=== PATIENT | female | born 1975 | race Two or more races ===

== ENCOUNTER 2020-02-23 11:52 | Emergency (ER) | payer MEDICAID ==
[~2020-02-23] VITALS: Ht 162.6 cm; Wt 74.8 kg
[~2020-02-23 11:52] MED LIST: ALBUTEROL SULF8.5 GM INH; AUGMENTIN 500-1 EACH ORAL; AZITHROMYCIN250 MG ORAL; BACTRIM-DS1 EA PO; CEPHALEXIN500 MG PO; METRONIDAZOLE500 MG PO; NKM; PROMETHAZINE-C118 M1 ORAL; TYLENOL 8 HOUR650 M1 ORAL; ZITHROMAX250 MG ORAL
[2020-02-23 12:24] VITALS: BP 111/71
--- NOTE | 2020-02-23 12:26 | NUR ---
ED Nurse Note:pt. c/o right knee pain for over one month, no injury reported
[2020-02-23] MEDS ORDERED: IBUPROFEN600 M1 ORAL (13:29)
[2020-02-23 13:34] VITALS: BP 113/73
--- NOTE | 2020-02-23 13:35 | Diagnostic Imaging Report ---
Indication: Pain Technique: 3 views of the right knee Comparison: None Findings: No acute fractures. No dislocations. There are small medial and lateral and patellar osteophytes. The joint spaces are preserved. There is equivocally a minimal amount of suprapatellar effusion. Impression: No acute process This agrees with the preliminary interpretation provided by the emergency room physician
--- NOTE | 2020-02-23 13:36 | NUR ---
ED Nurse Note:basil wrap placed on right knee Pt cleared by health care Provider for discharge. DC instructions/prescription was given and explained to pt and verbalized understanding of teachings. All medical deviecs such as ID band removed. Pt is AAO x4, ambulatory and left with all personal belongings.
--- NOTE | 2020-02-23 14:01 | Emergency Room Report ---
History of Present Illness General Chief Complaint: Pain Source: Patient Present Illness HPI Patient presents emergency department today complaint right knee pain. Patient states that she turned her knee a few days ago and since then has been hurting she feels like it clicks. States is swollen. She denies any trauma. No other complaints are noted. Symptoms noted to moderate. Denies any fever nausea vomiting diarrhea chills. No other complaints never had episodes of this before. No other modifying factors. No other associated signs and symptoms. No other complaints were noted. 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 Patient History Past Medical History: none Past Surgical History: none Pertinent Family History: none Social History: Denies: smoking, alcohol use, drug use Last Menstrual Period: unknown Reviewed Nursing Documentation: PMH: Agreed; PSxH: Agreed Nursing Documentation-PMH Past Medical History: No Stated History Hx Neurological Problems: Yes - Migraines Hx Seizures: Yes Review of Systems All Other Systems: negative except mentioned in HPI Physical Exam Vital Signs Date Time Temp Pulse Resp B/P (MAP) Pulse Ox O2 Delivery O2 Flow Rate FiO2 02/23/20 12:12 98.4 70 14 111/71 (84) 98 Room Air Sp02 EP Interpretation: reviewed, normal General Appearance: normal inspection, well appearing, no apparent distress, alert Head: atraumatic Eyes: bilateral eye normal inspection ENT: normal ENT inspection, hearing grossly normal, normal voice Neck: normal inspection, full range of motion, supple, no bony tend Respiratory: normal inspection, lungs clear, normal breath sounds, no respiratory distress, no retraction, no wheezing Cardiovascular #1: regular rate, rhythm, no edema Gastrointestinal: normal inspection, normal bowel sounds, non tender, soft, no guarding, no hernia Genitourinary: no CVA tenderness Musculoskeletal: tender - Right knee, swelling - Right knee, pain limited range of motion Neurologic: alert, responsive, speech normal, normal inspection Psychiatric: normal inspection, judgement/insight normal, mood/affect normal Skin: no rash Procedures Splinting Splinting : Consent: Verbal Location: Right knee Pre-Made Type: JARETT wrap Pre-Proc Neuro Vasc Exam: normal Post-Proc Neuro Vasc Exam: normal Patient Tolerated: Well Complications: None Medical Decision Making Diagnostic Impression: Primary Impression: Strain of knee and leg, right ER Course Patient presents emergency department today complaint right knee pain. Differential considerations include arthritis, septic joint, meniscus tear, ACL tear. Patient swelling of her leg culture negative. Results noted negative. Jarett bandage applied patient knee patient is advised to follow primary care physician outpatient orthopedic follow-up with possible MRI as an outpatient. Patient is advised to follow up with primary doctor in 2-3 days and return the emergency room for any worsening symptoms and as needed. Other X-Ray Diagnostic Results Other X-Ray Diagnostic Results : # of Views/Limited Vs Complete: 3 View Indication: Pain EP Interpretation: Yes Interpretation: no dislocation, no soft tissue swelling, no fractures Impression: No acute disease Electronically Signed by: Electronically signed by Delfino Hoffman MD Last Vital Signs Date Time Temp Pulse Resp B/P (MAP) Pulse Ox O2 Delivery O2 Flow Rate FiO2 02/23/20 13:34 98.4 74 14 113/73 98 Room Air Status: improved Disposition: HOME, SELF-CARE Condition: Stable Scripts Ibuprofen* (MOTRIN*) 600 Mg Tablet 600 MG ORAL Q6H PRN for FOR PAIN, #20 TAB 0 Refills Prov: Delfino Hoffman MD 02/23/20 Referrals: NOT CHOSEN IPA/,REFERRING (PCP) Patient Instructions: Knee Sprain Delfino Hoffman MD Feb 23, 2020 14:01
== END 2020-02-23 13:35 | disposition home or self-care (01) ==
LOC: EMR 12:53
DX: S86.911A Strain of unspecified muscle(s) and tendon(s) at lower leg level, right leg, initial encounter (principal); G40.909 Epilepsy, unspecified, not intractable, without status epilepticus; X58.XXXA Exposure to other specified factors, initial encounter; Y92.9 Unspecified place or not applicable
CPT/HCPCS: 73562; Z7502; 99283